=== PATIENT | male | born 1985 | race Caucasian/White ===

== ENCOUNTER 2024-01-20 16:59 | Inpatient (IN) ==
[2024-01-20] MEDS ORDERED: Ondansetron 4 mg VIAL 2 MG/ML 2 ml VIAL IV PRN (20:35)
[2024-01-20] MEDS ORDERED: Polyethylene Glycol 3350 17 GM PACKET PO PRN (20:35)
[2024-01-20] MEDS ORDERED: Senna TAB 8.6 mg TAB PO PRN (20:35)
[2024-01-21 08:49] LABS: Albumin/Globulin Ratio 1.5 (1-3); Calcium 9.1 mg/dL (8.6-10.3); Creatinine, Serum 0.98 mg/dL (0.67-1.17); Globulin 2.7 g/dL (2-4); Potassium 4.2 mmol/L (3.5-5.0); Total Bilirubin 0.6 mg/dL (0.2-1.0); Total Protein 6.7 g/dL (6.4-8.9); eGFR CKD-EPI 100.6 (>60)
[2024-01-21] MEDS: CABOZANTINIB 40 MG PO SCH ×2 (10:23→11:25)
[2024-01-24 06:44] LABS: ABS Eosinophils 0.3 10^3/uL (0.0-0.5); ABS Lymphocytes 1.4 10^3/uL (1.0-4.8); ABS Monocytes 0.5 10^3/uL (0.0-1.1); ABS Neutrophils 3.2 10^3/uL (1.5-7.6); Eosinophil % 6.2 %; Hematocrit 43.4 % (38-53); Hemoglobin 14.9 g/dL (13.2-16.3); Lymphocyte % 26.3 %; Mean Corpuscular Hemoglobin 30.4 pg (27-33); Mean Corpuscular Hgb Conc 34.2 g/dL (31-36); Mean Corpuscular Volume 88.9 fL (80-97); Nucleated Red Blood Cells % 0.1 %/100WBC (0.0-0.8); Platelet Count 227 10^3/uL (150-450); Red Blood Count 4.88 10^6/uL (4.06-5.63); Red Cell Distribution Width 13.4 % (12-17); White Blood Count 5.5 10^3/uL (3.6-10.2)
[2024-01-24 07:08] LABS: Calcium 9.3 mg/dL (8.6-10.3); Creatinine, Serum 1.22 mg/dL (0.67-1.17); Potassium 4.2 mmol/L (3.5-5.0); eGFR CKD-EPI 77.3 (>60)
[2024-01-24 14:35] VITALS: BP 113/85
== END 2024-01-24 14:45 | disposition short-term general hospital (02) | DRG 143 ==
LOC: EDHOLD 16:59 → ED 16:59 → SUATTDRO 20:35 → MED 23:33 → SUATTDRO 01-22 14:09
PROVIDERS: ADMIT Internal Medicine; ATTEND Internal Medicine